=== PATIENT | female | born 1985 | race Caucasian/White ===

== ENCOUNTER 2017-07-29 06:56 | Outpatient (CLI) | payer BC | END 2017-07-29 06:57 | disposition home or self-care (01) | LOC: BICULT 06:56 | PROVIDERS: ATTEND Family Medicine | DX: R10.9 Unspecified abdominal pain (principal); K76.0 Fatty (change of) liver, not elsewhere classified; R16.0 Hepatomegaly, not elsewhere classified | CPT/HCPCS: 76705 ==

== ENCOUNTER 2017-11-18 08:54 | Outpatient (CLI) | payer BC | END 2017-11-18 08:55 | disposition home or self-care (01) | LOC: BICMAMMO 08:54 | PROVIDERS: ATTEND Family Medicine | DX: M25.50 Pain in unspecified joint (principal); M62.50 Muscle wasting and atrophy, not elsewhere classified, unspecified site; Z79.52 Long term (current) use of systemic steroids | CPT/HCPCS: 77080 ==